=== PATIENT | male | born 1975 | race Caucasian/White ===

== ENCOUNTER 2020-08-18 20:09 | Emergency (ER) | payer MEDICAID ==
[~2020-08-18] VITALS: Ht 167.6 cm; Wt 61.2 kg
[2020-08-18 20:22] VITALS: Ht 167.6 cm; Wt 61.2 kg
[2020-08-19 05:28] VITALS: BP 133/92
== END 2020-08-19 05:28 | disposition home or self-care (01) ==
LOC: ED 20:09
DX: K40.90 Unilateral inguinal hernia, without obstruction or gangrene, not specified as recurrent (principal); R51.9 Headache, unspecified
CPT/HCPCS: J1885